=== PATIENT | female | born 1970 | race Caucasian/White ===

== ENCOUNTER 2016-08-25 18:59 | Inpatient (IN) | payer OTHER ==
[~2016-08-25] VITALS: Ht 167.6 cm; Wt 108.1 kg
[~2016-08-25 18:59] MED LIST: ADVAIR 250/501 DISK IH; ADVIL,NUPRIN,M200 MG PO; ADVIL200 MG PO; ALBUTEROL17 GM IH; ASPIR-LOW81 MG PO; AZITHROMYCIN500 M1 PO; Advair HFA 115/21 IH; CATAPRES0.1 MG PO; CEFUROXIME500 MG PO; CLONIDINE HCL0.1 MG PO; Ceftin PO; DELTASONE50 MG PO; DUONEB 2.5-0.5 M3 ML IH; EFFEXOR XR75 MG PO; EFFEXOR25 MG PO; ELAVIL25 MG PO; ENDOCET 5-3251 EACH PO; EXCEDRIN MIGRA1 EAC3 PO; FIORICET WI1 CAPSULE PO; FLEXERIL5 MG PO; GUAIFENESIN WI120 M1 PO; LEVOFLOXACIN750 MG PO; LISINOPRIL10 MG PO; LO-DOSE ASPIRIN81 M2 PO; Levaquin PO; MAGNESIUM250 MG PO; MONTELUKAST SOD10 MG PO; Medrol Dosepak PO; PERCOCET 5/31 TABLET PO; PERCOCET 7.51 TABLET PO; PERCOCET PO; PREDNISONE10 MG PO; PREDNISONE20 MG PO; PREDNISONE5 MG PO; PREDNISONE50 MG PO; PROAIR HFA8.5 GM IH; PROVENTIL,2.5 MG/3 M IH; PROVENTIL2.5 MG/3 M IH; Percocet 5/325,Endoc PO; ROBITUSSIN AC,T10 ML PO; Robitussin AC,Tussi- PO; SINGULAIR10 MG PO; SKELAXIN800 MG PO; SPIRIVA1 INHALATI IH; TESSALON PERLE100 MG PO; THEOPHYLLINE A300 M1 PO; TOPAMAX100 MG PO; TOPAMAX50 MG PO; Tessalon Perle PO; VALTREX1000 MG PO; VENTOLIN HFA18 GM IH; ZANAFLEX2 M1 PO; ZANAFLEX2 MG PO; ZESTRIL10 MG PO; ZITHROMAX Z-PA250 MG PO; ZOCOR20 MG PO; ZYRTEC10 M3 PO; Zithromax PO; predniSONE PO
[2016-08-25 19:36] LABS: CARBON DIOXIDE (BICARBONATE) 24.5 MEQ/L (20-31)
[2016-08-25 19:36] LABS: HEMATOCRIT 43.7 % (36.0-46.0); MCH 27.4 PG (29.0-34.0); MCV 83.1 FL (83-99); RBC DIS.WIDTH-CV 13.8 % (11.8-14.6); RBC DIS.WIDTH-SD 42.1 % (39-53); RED BLOOD COUNT 5.26 M/uL (3.80-5.20); WHITE BLOOD COUNT 8.9 K/uL (4.1-10.2)
[2016-08-25 19:45] LABS: CHLORIDE 103 mEq/L (99-109); POTASSIUM 4.3 mEq/L (3.7-5.4); SODIUM 135 mEq/L (136-147)
[2016-08-25 19:47] LABS: GLUCOSE 92 mg/dL (70-99)
[2016-08-25 19:48] LABS: ANION GAP 14 MEQ/L (2-14)
[2016-08-25 19:50] LABS: GFR ESTIMATE (CALCULATED) > 59 mL/min/
[2016-08-25 19:51] LABS: UREA NITROGEN (BUN) 13 mg/dL (9-23)
[2016-08-25 20:03] LABS: HEMATOLOGY COMMENT 1 SN; MEAN PLAT.VOLUME 12.5 uM^3 (9.5-12.4); PLATELET COUNT 182 K/uL (156-360)
[2016-08-25 20:50] LABS: TOTAL BILIRUBIN 0.4 mg/dL (0.0-1.0)
[2016-08-25 20:51] LABS: ALKALINE PHOSPHATASE 91 IU/L (3-129)
[2016-08-25 20:53] LABS: DIRECT BILIRUBIN 0.1 mg/dL (0.0-0.3)
[2016-08-25 20:54] LABS: LIPASE 11 U/L (1.0-51.0)
[2016-08-25] MEDS ORDERED: SPIRIVA1 INHALATI IH (21:07)
[2016-08-25 21:37] LABS: INFLUENZA A VIRAL ANTIGEN NEGATIVE; INFLUENZA B VIRAL ANTIGEN NEGATIVE
[2016-08-25 22:37] LABS: INTER. NORMALIZED RATIO 1.1; PROTHROMBIN TIME 11.1 (9.2-11.2); PTT 31.1 (25-32)
[2016-08-26 13:16] VITALS: BP 106/55
[2016-08-26 16:18] VITALS: BP 122/60
[2016-08-26 20:00] VITALS: BP 129/74
[2016-08-26 23:19] VITALS: BP 97/56
[2016-08-27 03:13] VITALS: BP 109/64
[2016-08-27 07:22] LABS: ANION GAP 8 MEQ/L (2-14); CHLORIDE 111 MEQ/L (99-109); GFR ESTIMATE (CALCULATED) > 59 mL/min/; POTASSIUM 4.2 MEQ/L (3.7-5.4); SAMPLE HEMOLYSIS CHECK 0; SAMPLE ICTERIC CHECK 0; SAMPLE LIPEMIA CHECK 0; UREA NITROGEN (BUN) 12 mg/dL (9-23)
[2016-08-27 07:25] LABS: GLUCOSE 139 mg/dL (70-99)
[2016-08-27 07:26] LABS: SODIUM 142 MEQ/L (136-147)
[2016-08-27 08:00] VITALS: BP 117/56
[2016-08-27 11:51] VITALS: BP 105/65
[2016-08-27 15:09] VITALS: BP 126/19; BP 126/71
[2016-08-27 19:10] VITALS: BP 126/77
[2016-08-27 23:30] VITALS: BP 117/66
[2016-08-28] VITALS (7 sets, daily range): BP systolic 116–140; BP diastolic 57–92
[2016-08-28 06:37] LABS: ANION GAP 9 MEQ/L (2-14); CHLORIDE 109 MEQ/L (99-109); GFR ESTIMATE (CALCULATED) > 59 mL/min/; GLUCOSE 147 mg/dL (70-99); POTASSIUM 4.3 MEQ/L (3.7-5.4); SAMPLE HEMOLYSIS CHECK 0; SAMPLE ICTERIC CHECK 0; SAMPLE LIPEMIA CHECK 0; SODIUM 141 MEQ/L (136-147); UREA NITROGEN (BUN) 13 mg/dL (9-23)
[2016-08-28 06:44] LABS: EOSINOPHIL (%) 0 % (0-5); HEMATOCRIT 37.2 % (36.0-46.0); IMMATURE GRANULOCYTE (%) 1.3 % (0.0-0.7); IMMATURE GRANULOCYTE COUNT 0.2 K/uL; INSTRUMENT ABS NEUTROPHIL CT 12.5 K/uL; LYMPHOCYTE COUNT 1.1 K/uL (1.0-2.8); MCH 26.9 PG (29.0-34.0); MCHC 31.7 G/DL (30.0-36.0); MCV 84.9 FL (83-99); MEAN PLAT.VOLUME 12.5 uM^3 (9.5-12.4); MONOCYTE (%) 2.4 % (3-12); MONOCYTE COUNT 0.3 K/uL (0-0.8); NEUTROPHIL (%) 88.3 % (45-76); NEUTROPHIL COUNT 12.5 K/uL (1.8-6.4); PLATELET COUNT 161 K/uL (156-360); RBC DIS.WIDTH-CV 14.6 % (11.8-14.6); RBC DIS.WIDTH-SD 45.2 % (39-53); RED BLOOD COUNT 4.38 M/uL (3.80-5.20)
[2016-08-28 06:55] LABS: WHITE BLOOD COUNT 14.2 K/uL (4.1-10.2)
[2016-08-29 04:02] VITALS: BP 140/55
[2016-08-29 06:23] LABS: EOSINOPHIL (%) 0 % (0-5); HEMATOCRIT 36.7 % (36.0-46.0); IMMATURE GRANULOCYTE (%) 1.6 % (0.0-0.7); IMMATURE GRANULOCYTE COUNT 0.2 K/uL; INSTRUMENT ABS NEUTROPHIL CT 6.8 K/uL; LYMPHOCYTE COUNT 2.9 K/uL (1.0-2.8); MCH 27.3 PG (29.0-34.0); MCHC 32.2 G/DL (30.0-36.0); MEAN PLAT.VOLUME 12.8 uM^3 (9.5-12.4); MONOCYTE (%) 5.5 % (3-12); MONOCYTE COUNT 0.6 K/uL (0-0.8); NEUTROPHIL (%) 65.1 % (45-76); NEUTROPHIL COUNT 6.8 K/uL (1.8-6.4); PLATELET COUNT 179 K/uL (156-360); RBC DIS.WIDTH-CV 14.6 % (11.8-14.6); RBC DIS.WIDTH-SD 45.5 % (39-53); RED BLOOD COUNT 4.32 M/uL (3.80-5.20); WHITE BLOOD COUNT 10.5 K/uL (4.1-10.2)
[2016-08-29 06:53] LABS: ANION GAP 8 MEQ/L (2-14); CHLORIDE 107 MEQ/L (99-109); GFR ESTIMATE (CALCULATED) > 59 mL/min/; SAMPLE HEMOLYSIS CHECK 1; SAMPLE ICTERIC CHECK 0; SAMPLE LIPEMIA CHECK 0; SODIUM 140 MEQ/L (136-147); UREA NITROGEN (BUN) 16 mg/dL (9-23)
[2016-08-29 07:01] LABS: GLUCOSE 94 mg/dL (70-99); POTASSIUM 4.3 MEQ/L (3.7-5.4)
[2016-08-29 07:36] VITALS: BP 130/72
[2016-08-29 11:46] VITALS: BP 151/93
[2016-08-29] MEDS ORDERED: CEFTIN500 MG PO (14:00)
[2016-08-29] MEDS ORDERED: BENZONATATE100 MG PO (14:00)
[2016-08-29] MEDS ORDERED: PREDNISONE20 MG PO (14:00)
== END 2016-08-29 15:46 | disposition home or self-care (01) | DRG 202 ==
LOC: EME 18:59 → 4SOUTH 08-26 00:54 → EDOF 08-26 00:54 → 4EAST 08-26 13:16 → 4SOUTH 08-27 14:58 → 3EAST 08-28 18:28
PROVIDERS: Hospitalist; Internal Medicine; Physician Assistant
DX: J45.52 Severe persistent asthma with status asthmaticus (principal); J96.01 Acute respiratory failure with hypoxia; J20.9 Acute bronchitis, unspecified; I10 Essential (primary) hypertension; Z86.718 Personal history of other venous thrombosis and embolism; G89.29 Other chronic pain; M54.9 Dorsalgia, unspecified; F32.9 Major depressive disorder, single episode, unspecified; E78.5 Hyperlipidemia, unspecified; E66.9 Obesity, unspecified; Z87.891 Personal history of nicotine dependence; Z68.38 Body mass index [BMI] 38.0-38.9, adult
CPT/HCPCS: 71020; 71275; 80048; 80076; 81003; 82803; 83605; 83690; 85025; 85027; 85610; 85730; 87040; 87502; 93005; 94002; 94640; 94640 76; 94644; 94760; 94799; 99202; 99281; 99285; J0696; J1644; J2930; J3010; J3475; J7030; J7050; J7512